=== PATIENT | female | born 1975 ===

== ENCOUNTER 2018-05-16 15:47 | Emergency (ER) | payer BC ==
[2018-05-16 16:03] VITALS: BP 115/69; PULSE 71; RESP 18; TEMP 98.2; O2SAT 100
--- NOTE | 2018-05-16 16:42 | ED PDOC ---
Upper Extremity Pain/Injury Time Seen by Provider: 05/16/18 16:20 Chief Complaint (Nursing): Upper Extremity Problem/Injury Chief Complaint (Provider): Upper Extremity Problem/Injury History Per: Patient History/Exam Limitations: no limitations Onset/Duration Of Symptoms: Days Current Symptoms Are (Timing): Still Present Quality: "Pain" Pain Scale Rating Of: 2 Exacerbating Factor(s): Nothing Additional Complaint(s): 42 y/o female with no significant PMHx presents to the ED for evaluation of right arm pain, onset 30 minutes prior to arrival. Patient states a Ramirez's bed post landed on her right arm. Patient reports of pain with minor pain when moving her fingers, flexing her wrist as well as extending her elbow. Patient states pain worsens with movement. PMD: Giovanny Olsen Past Medical History Reviewed: Historical Data, Nursing Documentation, Vital Signs Vital Signs: Last Vital Signs Temp 98.2 F 05/16/18 16:01 Pulse 71 05/16/18 16:01 Resp 18 05/16/18 16:01 BP 115/69 05/16/18 16:01 Pulse Ox 100 05/16/18 16:01 - Medical History PMH: No Chronic Diseases - Surgical History Surgical History: No Surg Hx - Family History Family History: States: Unknown Family Hx - Immunization History Hx Influenza Vaccination: Yes - Home Medications Home Medications: Ambulatory Orders Medication Instructions Recorded Ibuprofen [Motrin] 600 mg PO Q6H #30 tab 05/17/16 - Allergies Allergies/Adverse Reactions: Allergies Allergy/AdvReac Type Severity Reaction Status Date / Time No Known Allergies Allergy Unverified 05/16/18 16:00 Review of Systems ROS Statement: Except As Marked, All Systems Reviewed And Found Negative Musculoskeletal: Positive for: Arm Pain (right arm ) Physical Exam - Reviewed Nursing Documentation Reviewed: Yes Vital Signs Reviewed: Yes - Physical Exam Appears: Positive for: No Acute Distress Head Exam: Positive for: ATRAUMATIC, NORMAL INSPECTION, NORMOCEPHALIC Skin: Positive for: Normal Color, Warm, Dry. Negative for: Diaphoresis, Pallor, Rash Neck: Positive for: Normal, Painless ROM, Supple. Negative for: Decreased ROM Cardiovascular/Chest: Positive for: Regular Rate, Rhythm Respiratory: Positive for: Normal Breath Sounds Pulses-Carotid (L): 2+ Pulses-Carotid (R): 2+ Pulses-Radial (L): 2+ Pulses-Radial (R): 2+ Extremity: Positive for: Swelling (Mild swelling of the ulnar shaft at 2/3 in distance ), Other (Right [employer] 4/5. Capillary refill <2 seconds at all distal extremities) - ECG O2 Sat by Pulse Oximetry: 100 Medical Decision Making Medical Decision Making: Time: 1620 Plan: -- ED Urine -- Forearm Right XR -- Wrist, Right 3 Views XR XR negative with dx of soft tissue ecchymosis secondary to trauma (bruise) Follow up PMD 48-72 hours ibu and apap for pain ____ Scribe Attestation: Documented by Glenroy Ha, acting as a scribe for Yordy Jacobo PA-C. Provider Scribe Attestation: All medical record entries made by the Scribe were at my direction and person ally dictated by me. I have reviewed the chart and agree that the record accurately reflects my personal performance of the history, physical exam, medical decision making, and the department course for this patient. I have also personally directed, reviewed, and agree with the discharge instructions and disposition. Disposition - Clinical Impression Clinical Impression: Contusion shoulder/arm - Patient ED Disposition Is Patient to be Admitted: No Counseled Patient/Family Regarding: Studies Performed, Diagnosis, Need For Followup - Disposition Disposition: Routine/Home Disposition Time: 17:29 Condition: STABLE Additional Instructions: follow up with PMD in 48-72 hours Instructions: Contusion (DC) Forms: [employer] ([place])
--- NOTE | 2018-05-16 17:20 | RAD ---
PROCEDURE: Radiographs of the Right Forearm HISTORY: r/o fx COMPARISON: None available. TECHNIQUE: Frontal and lateral views obtained. FINDINGS: BONES: No fracture or destructive lesion. JOINT SPACES: Unremarkable. OTHER FINDINGS: None. IMPRESSION: Unremarkable radiographs of the right forearm.
--- NOTE | 2018-05-16 17:23 | RAD ---
Date of service: 05/16/2018 PROCEDURE: Right Wrist Radiographs. HISTORY: r/o fx COMPARISON: None. FINDINGS: BONES: Normal. No fracture. JOINTS: Normal. No dislocation. SOFT TISSUES: Normal. OTHER FINDINGS: None. IMPRESSION: Normal right wrist radiographs.
== END 2018-05-16 17:33 | disposition home or self-care (01) ==
LOC: H.ER 15:47
DX: S40.011A Contusion of right shoulder, initial encounter (principal); S49.91XA Unspecified injury of right shoulder and upper arm, initial encounter; W22.8XXA Striking against or struck by other objects, initial encounter; Y92.89 Other specified places as the place of occurrence of the external cause